=== PATIENT | female | born 1950 | race Two or more races ===

== ENCOUNTER 2018-03-15 10:29 | Outpatient (CLI) | payer OTHER | END 2018-03-15 14:07 | disposition home or self-care (01) | LOC: SONOGRAMA 10:29 | DX: E04.1 Nontoxic single thyroid nodule (principal) ==

== ENCOUNTER 2020-06-04 09:07 | Outpatient (CLI) | payer OTHER | END 2020-06-04 09:11 | disposition home or self-care (01) | LOC: SONOGRAMA 09:07 | PROVIDERS: ATTEND Pathology Anatomic Pathology & Clinical Pathology | DX: E04.1 Nontoxic single thyroid nodule (principal) ==

== ENCOUNTER 2020-11-19 07:56 | Outpatient (CLI) | payer OTHER | END 2020-11-19 08:00 | disposition home or self-care (01) | LOC: SONOGRAMA 07:56 | PROVIDERS: ATTEND Pathology Anatomic Pathology & Clinical Pathology | DX: D34 Benign neoplasm of thyroid gland (principal); E04.1 Nontoxic single thyroid nodule; E07.89 Other specified disorders of thyroid ==